=== PATIENT | female | born 1985 | race Caucasian/White ===

== ENCOUNTER → 2016-05-21 | Outpatient (CLI) | payer OTHER ==
--- NOTE | 2016-05-21 08:24 | MM ---
Reason for exam: clinical finding. Baseline mammogram. History: Cyst aspiration, 2012. Indicated problem(s): lump or thickening in the right breast. Physical Findings: Nurse Summary: 2cm nodule in the right breast at 9 o'clock (nurse heber). MG 3D Diag Mammo W/Cad SONG Bilateral CC and MLO view(s) were taken. There are scattered fibroglandular densities. Finding #1: Architectural distortion in the right breast consistent with scar. Finding #2: There are few typically benign round calcifications in the right breast. There is no discrete abnormality. These results were verbally communicated with the patient and result sheet given to the patient on 05/21/16. ASSESSMENT: Incomplete: need additional imaging evaluation, BI-RAD 0 RECOMMENDATION: Ultrasound of the right breast. (palpable by nurse)
--- NOTE | 2016-05-21 08:26 | USB ---
Reason for exam: clinical finding. History: Cyst aspiration, 2013. Indicated problem(s): lump or thickening in the right breast. US Breast RT Right breast ultrasound including all four quadrants, the retroareolar region and axilla demonstrates a 1.6 x 1.0 x 1.4cm oval, mixed lesion at 10 o'clock, 14cm from nipple and a 1.5 x 1.0 x 1.9cm oval, mixed lesion at 12 o'clock, 13cm from nipple at end of scar, shadowing. These results were verbally communicated with the patient and result sheet given to the patient on 05/21/16. ASSESSMENT: Suspicious, BI-RAD 4 RECOMMENDATION: Ultrasound core biopsy of the right breast. (1-2 sites) Called Dr. Vivas with mammographic findings and has scheduled an appointment for the patient for 05/27/16 at 4:[address] Goel. PRELIMINARY REPORT CALLED AND FAXED TO DR. GOEL ON 05/21/16 AT 300/TP.
== END | disposition home or self-care (01) ==
LOC: RADMAMWWP 06:50
PROVIDERS: ATTEND Family Medicine
DX: N63 Unspecified lump in breast (principal); R92.8 Other abnormal and inconclusive findings on diagnostic imaging of breast
CPT/HCPCS: 76641; G0204; G0279

== ENCOUNTER → 2016-06-07 | Day surgery (SDC) | payer OTHER ==
[~2016-06-07] MED LIST: ALPRAZolam 0.25 MG TAB ONE; BACITRACIN OINT 1 EACH PACKET TOPICAL ONE; LIDOCAINE 1% INJ 10MG/ML (20 ML MDV) ONE; SODIUM BICARB 4% 5 ML VIAL (0.48 MEQ/ML) ONE
--- NOTE | 2016-06-07 15:23 | USB ---
EXAMINATION TYPE: US biopsy breast VAD RT DATE OF EXAM: 06/07/2016 2:57 PM CLINICAL HISTORY: N63 BREAST LUMP,MASS. TECHNIQUE: Ultrasound guided core biopsy of left breast at the 12 and 10:00 positions. COMPARISON: 05/21/2016 FINDINGS: The procedure of ultrasound guided core biopsy was explained to the patient. Benefits, alternatives, and risks were discussed. An informed consent was then obtained. 12:00 position was reimaged and the abnormality seen previously demonstrates significant interval improvement with smaller cystic area remaining. Biopsy of the 12:00 area was not performed and six-month follow-up is advised. The 10:00 location appears similar to the prior study and therefore was targeted for biopsy. The patient was placed in supine positioning for imaging and for the procedure. The overlying skin was prepped and draped in usual sterile fashion. Lidocaine buffered with bicarbonate was used as anesthetic into the skin and subcutaneous tissue up to area of concern in the right 10:00 breast. A kathy was made with surgical scalpel. Under ultrasound guidance, a 12-gauge vacuum assisted biopsy gun device was used to obtain 5 core samples. Following this, a biopsy clip was left in lesion. Clip marker was deployed and the mammogram was not obtained given lack of mammographic finding. The patient tolerated the procedure well without any immediate complication. The patient was kept in the radiology department for short stay after the procedure and then discharged home in stable condition. IMPRESSION: Successful, uncomplicated ultrasound guided core biopsy of area of concern in the right 10:00 breast, full pathology results to follow. Six-month follow-up ultrasound right breast. Pathology Results: Benign BREAST, RIGHT, 10:00, ULTRASOUND GUIDED CORE BIOPSY: FAT NECROSIS, FIBROSIS WITH HYALINIZATION, FIBROPLASIA, VASCULAR PROLIFERATION AND LYMPHOHISTIOCYTIC INFLAMMATION. BREAST ELEMENTS ARE NOT IDENTIFIED IN THE BIOPSY MATERIAL. Recommendation Follow up ultrasound of the right breast in 6 months. ELICEOD
== END ==
LOC: RADUSWWP 13:12
PROVIDERS: ATTEND Surgery
DX: N63 Unspecified lump in breast (principal); R92.8 Other abnormal and inconclusive findings on diagnostic imaging of breast
CPT/HCPCS: 19083; A4648; J2001; 88305

== ENCOUNTER 2016-09-23 02:08 | Emergency (ER) | payer OTHER ==
[2016-09-23 02:19] VITALS: BP 161/97; RESP 18; TEMP 97.6
[2016-09-23] MEDS: hydrOXYzine PAMOATE 25 MG CAP PO STA (02:34)
[2016-09-23] MEDS: diphenhydrAMINE 50 MG CAP PO STA (02:34)
[2016-09-23] MEDS: FAMOTIDINE 20 MG TAB PO STA (02:34)
[2016-09-23] MEDS: methylPREDNISolone SOD SUCCI 125 MG/2 ML VIAL IM ONE (02:35)
[2016-09-23] MEDS: ALBUTEROL NEBULIZED 2.5 MG/3 ML INHALATION STA (02:40)
[2016-09-23 02:44] VITALS: PULSE 96
--- NOTE | 2016-09-23 03:03 | ED ---
Skin/Abscess/FB HPI - General Chief complaint: Skin/Abscess/Foreign Body Stated complaint: hives Time Seen by Provider: 09/23/16 02:19 Source: patient, RN notes reviewed, old records reviewed Mode of arrival: ambulatory Limitations: no limitations - History of Present Illness Initial comments: This is a pleasant 31-year-old female presents emergency Department chief complaint of hives over her back, chest and abdomen and arms the past 2 hours. Patient reports that she noticed her hives earlier in the day and took some Benadryl may one week. Patient reports that she was sleeping when she noticed that the hives and then return. Patient denies any exposures that could've caused this. She denies any abnormal foods or changes in detergents or other new exposures. Patient states that she is not short of breath and does not feel her mouth or lip swelling. Patient is a smoker. She denies any recent fever or chills, chest pain, shortness of breath, nausea, vomiting, diarrhea, dysuria or other physical complaints. - Related Data Home Medications Medication Instructions Recorded Confirmed Cyclobenzaprine [Flexeril] 10 mg PO Q8H PRN 12/23/15 01/26/16 HYDROcodone/APAP 10-325MG [[place] 1 tab PO TID 12/23/15 01/26/16 10-325] Metoprolol Tartrate [Lopressor] 25 mg PO BID 12/23/15 01/26/16 Pravastatin Sodium [Pravachol] 20 mg PO DAILY 12/23/15 01/26/16 Venlafaxine HCl [Effexor] 75 mg PO BID 12/23/15 01/26/16 Previous Rx's Medication Instructions Recorded Albuterol Inhaler [Ventolin Hfa 1 - 2 puff INHALATION Q6HR PRN #1 09/23/16 Inhaler] inhaler Famotidine [Pepcid] 20 mg PO BID #10 tablet 09/23/16 diphenhydrAMINE [Benadryl] 25 mg PO QID PRN #20 capsule 09/23/16 predniSONE 20 mg PO BID #6 tab 09/23/16 Allergies Allergy/AdvReac Type Severity Reaction Status Date / Time venom-honey bee Allergy Unknown Verified 09/23/16 02:19 [bee venom (honey bee)] tramadol AdvReac Unknown Verified 06/22/17 02:19 Review of Systems ROS Statement: Those systems with pertinent positive or pertinent negative responses have been documented in the HPI. ROS Other: All systems not noted in ROS Statement are negative. Past Medical History Past Medical History: Hypertension Additional Past Medical History / Comment(s): low back pain, endometriosis History of Any Multi-Drug Resistant Organisms: None Reported Past Surgical History: Unable to Obtain Additional Past Surgical History / Comment(s): laparoscopy Past Psychological History: Depression Smoking Status: Current every day smoker Past Alcohol Use History: None Reported Past Drug Use History: Marijuana General Exam - General Exam Comments Initial Comments: Pleasant 31-year-old female. No distress. Limitations: no limitations General appearance: alert, in no apparent distress Head exam: Present: atraumatic, normocephalic, normal inspection Eye exam: Present: normal appearance, PERRL, EOMI. Absent: scleral icterus, conjunctival injection, periorbital swelling ENT exam: Present: normal exam, mucous membranes moist Neck exam: Present: normal inspection. Absent: tenderness, meningismus, lymphadenopathy Respiratory exam: Present: normal lung sounds bilaterally, wheezes, other (Mild wheeze however patient is a smoker.). Absent: respiratory distress, rales, rhonchi, stridor Cardiovascular Exam: Present: regular rate, normal rhythm, normal heart sounds. Absent: systolic murmur, diastolic murmur, rubs, gallop, clicks GI/Abdominal exam: Present: soft, normal bowel sounds. Absent: distended, tenderness, guarding, rebound, rigid Extremities exam: Present: normal inspection, full ROM, normal capillary refill. Absent: tenderness, pedal edema, joint swelling, calf tenderness Back exam: Present: normal inspection Neurological exam: Present: alert, oriented X3, CN II-XII intact Psychiatric exam: Present: normal affect, normal mood Skin exam: Present: warm, dry, intact, urticaria. Absent: normal color ( Patient urticaria over back, chest, abdomen and upper arms and lower buttock.), rash Course Vital Signs 09/23/16 09/23/16 09/23/16 02:15 02:40 02:51 Temperature 97.6 F Pulse Rate 104 H 96 96 Respiratory 18 Rate Blood Pressure 161/97 O2 Sat by Pulse 98 Oximetry Medical Decision Making - Medical Decision Making This is a pleasant 31-year-old female presents emergency Department chief complaint of hives over her back, chest and abdomen and arms the past 2 hours. Patient reports that she noticed her hives earlier in the day and took some Benadryl may one week. Patient reports that she was sleeping when she noticed that the hives and then return. Patient denies any exposures that could've caused this. She denies any abnormal foods or changes in detergents or other new exposures. Patient states that she is not short of breath and does not feel her mouth or lip swelling. Patient does have significant urticaria over her back, chest and abdomen. She also had a mild wheeze but she does state that she is a smoker. Patient given albuterol breathing treatment, I am Solu- Medrol and Benadryl and Pepcid. Patient was reevaluated and her hives are clearing. She does feel much better. Patient will be discharged on a steroid dose for the next few days as well as Pepcid and Benadryl. Patient agrees to treatment plan will comply. Return parameters were discussed. Disposition Clinical Impression: Urticaria Disposition: HOME SELF-CARE Condition: Good Instructions: Urticaria (ED) Additional Instructions: Take prescriptions as directed. Follow up with PCP, return to the emergency department if any alarming signs or symptoms that occur. Prescriptions: Albuterol Inhaler [Ventolin Hfa Inhaler] 1 - 2 puff INHALATION Q6HR PRN #1 inhaler PRN Reason: Shortness Of Breath diphenhydrAMINE [Benadryl] 25 mg PO QID PRN #20 capsule PRN Reason: Itching Famotidine [Pepcid] 20 mg PO BID #10 tablet predniSONE 20 mg PO BID #6 tab Referrals: Davon Vivas DO [Primary Care Provider] - 1-2 days Time of Disposition: 03:00
== END 2016-09-23 03:11 | disposition home or self-care (01) ==
LOC: EC 02:08
DX: L50.9 Urticaria, unspecified (principal); I10 Essential (primary) hypertension; F32.9 Major depressive disorder, single episode, unspecified; F17.200 Nicotine dependence, unspecified, uncomplicated; Z79.891 Long term (current) use of opiate analgesic; Z79.899 Other long term (current) drug therapy; Z88.5 Allergy status to narcotic agent; Z91.030 Bee allergy status; Z87.39 Personal history of other diseases of the musculoskeletal system and connective tissue
CPT/HCPCS: 94640; 99283; 96372; J2930

== ENCOUNTER 2017-04-15 19:27 | Emergency (ER) | payer BC, OTHER ==
[2017-04-15 19:58] VITALS: BP 168/103; PULSE 98; RESP 18; TEMP 99.8
--- NOTE | 2017-04-15 20:45 | XR ---
Left foot and ankle HISTORY: Trauma and pain 3 views of the left foot and 3 views of the left ankle are submitted. Bone mineralization, joint spaces and alignment are maintained. Small ossific density distal to the m edial malleolus as well as distal to the fibula are well-corticated and felt likely to be acute chron ic. There is soft tissue swelling at the ankle. IMPRESSION: No acute fracture or dislocation is evident.
--- NOTE | 2017-04-15 21:11 | ED ---
Lower Extremity Injury HPI - General Chief Complaint: Extremity Injury, Lower Stated Complaint: Lt Ankle Injury Time Seen by Provider: 04/15/17 20:16 Source: patient, RN notes reviewed, old records reviewed Mode of arrival: wheelchair Limitations: no limitations - History of Present Illness Initial Comments: 32-year-old female presents to the emergency department today chief complaint of left ankle pain and swelling. She reports that she slipped and within the ice and rolled her ankle. She denies any knee pain. She does report some lower leg bruising and swelling. She reports that she has fractured and sprained both of her ankles multiple times. She denies any numbness or tingling down the toes. She reports she has full range of motion of her feet. Patient reports she has not seen an orthopedic in many years. Denies any other injuries related to the fall.Patient denies any recent fever, chills, shortness of breath, chest pain, back pain, abdominal pain, nausea vomiting, numbness or tingling, dysuria or hematuria, constipation or diarrhea, headaches or visual changes, or any other current symptoms - Related Data Home Medications Medication Instructions Recorded Confirmed Cyclobenzaprine [Flexeril] 10 mg PO TID PRN 04/15/17 04/15/17 Ibuprofen [Motrin] 800 mg PO Q8H PRN 04/15/17 04/15/17 Previous Rx's Medication Instructions Recorded Ibuprofen [Motrin] 600 mg PO Q6HR PRN #20 tab 04/15/17 Allergies Allergy/AdvReac Type Severity Reaction Status Date / Time venom-honey bee Allergy Unknown Verified 04/15/17 20:02 [bee venom (honey bee)] tramadol AdvReac Unknown Verified 04/15/17 20:02 Review of Systems ROS Statement: Those systems with pertinent positive or pertinent negative responses have been documented in the HPI. ROS Other: All systems not noted in ROS Statement are negative. Past Medical History Past Medical History: Hypertension Additional Past Medical History / Comment(s): low back pain, endometriosis History of Any Multi-Drug Resistant Organisms: None Reported Past Surgical History: Unable to Obtain Additional Past Surgical History / Comment(s): laparoscopy Past Psychological History: Depression Smoking Status: Current every day smoker Past Alcohol Use History: Occasional Past Drug Use History: Marijuana General Exam - General Exam Comments Initial Comments: this is a 32-year-old female. No acute distress. Limitations: no limitations General appearance: alert, in no apparent distress Head exam: Present: atraumatic, normocephalic, normal inspection Eye exam: Present: normal appearance, PERRL, EOMI. Absent: scleral icterus, conjunctival injection, periorbital swelling ENT exam: Present: normal exam, mucous membranes moist Neck exam: Present: normal inspection. Absent: tenderness, meningismus, lymphadenopathy Respiratory exam: Present: normal lung sounds bilaterally. Absent: respiratory distress, wheezes, rales, rhonchi, stridor Cardiovascular Exam: Present: regular rate, normal rhythm, normal heart sounds. Absent: systolic murmur, diastolic murmur, rubs, gallop, clicks Left Knee exam: Present: normal inspection, full ROM Lower Leg exam: Present: normal inspection, ecchymosis (a few areas of scattered ecchymosis over the lower leg.) Ankle exam: Present: tenderness (tenderness over the lateral malleolus.), swelling. Absent: normal inspection, full ROM (patient reports limited inversion and eversion of the ankle due to pain.) Foot/Toe exam: Present: normal inspection Neurovascular tendon exam: Present: no vascular compromise Gait: observed and limited by pain. negative: observed and normal, not tested/ not observed Back exam: Present: normal inspection Neurological exam: Present: alert, oriented X3, CN II-XII intact Psychiatric exam: Present: normal affect, normal mood Course Vital Signs 04/15/17 19:52 Temperature 99.8 F H Pulse Rate 98 Respiratory 18 Rate Blood Pressure 168/103 O2 Sat by Pulse 98 Oximetry Procedures - Orthopedic Splinting/Casting Injury #1 Side: left Lower Extremity Injury Location: ankle Lower Extremity Immobilizer: AirCast, Hal wrap Other Orthopedic Equipment: crutches Medical Decision Making - Medical Decision Making this patient is a 32-year-old female presents emergency department today chief complaint of left ankle pain and swelling after she rolled it slipped on ice. Denies any other injuries related to the fall. She has some tenderness over the lateral malleolus. Limited range of motion due to pain significant swelling noted. Patient was given ice pack, x-rays obtained. X-rays are negative for any acute fracture dislocation. Patient is placed in an Hal wrap, and ankle stirrup Aircast. Laboratory medicine. Discussed rest, ice, and elevate the uncle. Patient agrees to treatment plan will comply. Return parameters were discussed. - Radiology Data Radiology results: report reviewed x-rays negative for any acute process. Disposition Clinical Impression: Left ankle sprain Disposition: HOME SELF-CARE Condition: Good Instructions: Ankle Sprain (ED) Additional Instructions: is advised to rest, ice, elevate the foot. Endocrine with crutches. Follow-up with orthopedic if symptoms continue to persist or worsen within the next week. Return to emergency department if any alarming signs or symptoms occur. Prescriptions: Ibuprofen [Motrin] 600 mg PO Q6HR PRN #20 tab PRN Reason: Pain Referrals: Davon Vivas DO [Primary Care Provider] - 1-2 days Time of Disposition: 21:10
== END 2017-04-15 21:20 | disposition home or self-care (01) ==
LOC: EC 19:27
DX: S93.402A Sprain of unspecified ligament of left ankle, initial encounter (principal); F17.200 Nicotine dependence, unspecified, uncomplicated; Z91.030 Bee allergy status; Z88.6 Allergy status to analgesic agent; X50.1XXA Overexertion from prolonged static or awkward postures, initial encounter; Y92.89 Other specified places as the place of occurrence of the external cause
CPT/HCPCS: 99284

== ENCOUNTER 2019-02-25 05:47 | Emergency (ER) | payer BC ==
[2019-02-25 05:53] VITALS: TEMP 98.1
[2019-02-25] MEDS ORDERED: SODIUM CHLORIDE 0.9% 1,000 ML IV ONE (06:07)
[2019-02-25] MEDS ORDERED: HYDROmorphone 0.5 MG/0.5 ML SYRINGE IVP STA (06:07)
[2019-02-25] MEDS ORDERED: ONDANSETRON 4 MG/2 ML VIAL IVP STA (06:08)
[2019-02-25] MEDS ORDERED: SODIUM CHLORIDE 0.9% 1,000 ML IV SCH (06:15)
[2019-02-25 06:16] LABS: Basophils # (A) 0.1 k/uL (0-0.2); Basophils % (A) 1 %; Eosinophils # (A) 0.2 k/uL (0-0.7); Eosinophils % (A) 2 %; HGB 15.4 gm/dL (11.4-16.0); Lymphocytes # (A) 2.4 k/uL (1.0-4.8); Lymphocytes % (A) 20 %; MCH 29.7 pg (25.0-35.0); MCHC 32.7 g/dL (31.0-37.0); Mean Platelet Volume 7.3; Monocytes # (A) 0.5 k/uL (0-1.0); Monocytes % (A) 4 %; Neutrophils # (A) 8.8 k/uL (1.3-7.7); Neutrophils % (A) 72 %; Platelet Count 331 k/uL (150-450); RBC 5.17 m/uL (3.80-5.40); RDW 13.4 % (11.5-15.5); WBC 12.2 k/uL (3.8-10.6)
[2019-02-25 06:25] LABS: ALT 39 U/L (9-52); AST 23 U/L (14-36); African American GFR (CKD) >90 (>60 ml/min/1.73 sqM); Albumin 4.7 g/dL (3.5-5.0); Alkaline Phosphatase 82 U/L (38-126); Amylase 47 U/L (30-110); Anion Gap 14 mmol/L; Blood Urea Nitrogen 9 mg/dL (7-17); Calcium 10.3 mg/dL (8.4-10.2); Carbon Dioxide 21 mmol/L (22-30); Chloride 106 mmol/L (98-107); Glucose 125 mg/dL (74-99); Non-African American GFR(CKD) 84 (>60 ml/min/1.73 sqM); Potassium 3.8 mmol/L (3.5-5.1); Sodium 141 mmol/L (137-145); Total Bilirubin 0.6 mg/dL (0.2-1.3)
--- NOTE | 2019-02-25 07:11 | ED ---
Abdominal Pain HPI - General Chief Complaint: Abdominal Pain Stated Complaint: Abd Pain Time Seen by Provider: 02/25/19 06:07 Source: patient Mode of arrival: ambulatory Limitations: no limitations - History of Present Illness Initial Comments: 33-year-old female no snuff and past medical history presenting today for chief complaint of right upper quadrant pain that radiates to the back. Patient states that she has had this pain on and off for the past 6 months. She denies any specific alleviating or aggravating factors. She does know possible pattern with greasy foods. Patient states it occurs usually in the night. Patient states he began around 2 ominous persistent. She states is sharp in nature. She denies any chest pain shortness of breath and leg swelling. Patient denies any lower abdominal pain denies , vaginal discharge or pelvic pain. Patient denies diarrhea, admits to vomiting on occasion and nausea with symptoms. Remaining ROS (-). Upon arrival patient appears uncomfortable. - Related Data Home Medications Medication Instructions Recorded Confirmed Cyclobenzaprine [Flexeril] 10 mg PO TID PRN 04/15/17 04/15/17 Ibuprofen [Motrin] 800 mg PO Q8H PRN 04/15/17 04/15/17 Previous Rx's Medication Instructions Recorded Ibuprofen [Motrin] 600 mg PO Q6HR PRN #20 tab 04/15/17 Allergies Allergy/AdvReac Type Severity Reaction Status Date / Time venom-honey bee Allergy Unknown Verified 02/25/19 05:53 [bee venom (honey bee)] tramadol AdvReac Unknown Verified 02/25/19 05:53 Review of Systems ROS Statement: Those systems with pertinent positive or pertinent negative responses have been documented in the HPI. ROS Other: All systems not noted in ROS Statement are negative. Past Medical History Past Medical History: Hypertension Additional Past Medical History / Comment(s): low back pain, endometriosis History of Any Multi-Drug Resistant Organisms: None Reported Past Surgical History: Unable to Obtain Additional Past Surgical History / Comment(s): laparoscopy Past Psychological History: Depression Smoking Status: Current every day smoker Past Alcohol Use History: Occasional Past Drug Use History: Marijuana General Exam - General Exam Comments Initial Comments: General: The patient is awake and alert, in no distress, and does not appear acutely ill. Eye: +3 mm pupils are equal, round and reactive to light, extra-ocular movements are intact. No nystagmus. There is normal conjunctiva bilaterally. No signs of icterus. Cardiovascular: There is a regular rate and rhythm. No murmur, rub or gallop is appreciated. Respiratory: Lungs are clear to auscultation, respirations are non-labored, breath sounds are equal. No wheezes, stridor, rales, or rhonchi. Gastrointestinal: Soft, non-distended, abdomen exquisitely tender to palpation of the right upper quadrant with positive Brown sign the remaining abdomen is nontender and without masses or organomegaly noted. There is no rebound or guarding present. No CVA tenderness. Bowel sounds are unremarkable. Musculoskeletal: Normal ROM, no tenderness. Strength 5/5. Sensation intact. Rdaial pulses equal bilaterally 2+. Neurological: A&O x 3. CN II-XII intact grossly, There are no obvious motor or sensory deficits. Coordination appears grossly intact. Speech is normal. Skin: Skin is warm and dry and no rashes or lesions are noted. Psychiatric: Cooperative, appropriate mood & affect, normal judgment. Limitations: no limitations Course Vital Signs 02/25/19 02/25/19 05:51 07:19 Temperature 98.1 F Pulse Rate 116 H 66 Respiratory 22 18 Rate Blood Pressure 159/90 142/82 O2 Sat by Pulse 98 98 Oximetry Medical Decision Making - Medical Decision Making 43-year-old female presented for abdominal pain she states she ate a fatty meal the night prior. Patient states this happens when she goes out for dinner. Right upper quadrant tenderness. No rebound or guarding. Pain controlled with 1 dose of Dilaudid no additional pain patient's had these episodes the pain resolves on and off for 6 months. Ultrasound revealed equivocal findings for cholecystitis. Patient is mild leukocytosis no transaminitis. General surgery was consulted. Recommending discharge with outpatient follow-up next week. Return parameters were discussed with patient including fever or worsening or persistent abdominal pain patient verbalized understanding and was discharged appearing well. Discussed avoidance of fatty foods - Lab Data Result diagrams: 02/25/19 06:06 02/25/19 06:06 Lab Results 02/25/19 02/25/19 02/25/19 Range/Units 06:06 06:06 07:27 WBC 12.2 H (3.8-10.6) k/uL RBC 5.17 (3.80-5.40) m/uL Hgb 15.4 (11.4-16.0) gm/dL Hct 47.0 H (34.0-46.0) % MCV 91.0 (80.0-100.0) fL MCH 29.7 (25.0-35.0) pg MCHC 32.7 (31.0-37.0) g/dL RDW 13.4 (11.5-15.5) % Plt Count 331 (150-450) k/uL Neutrophils % 72 % Lymphocytes % 20 % Monocytes % 4 % Eosinophils % 2 % Basophils % 1 % Neutrophils # 8.8 H (1.3-7.7) k/uL Lymphocytes # 2.4 (1.0-4.8) k/uL Monocytes # 0.5 (0-1.0) k/uL Eosinophils # 0.2 (0-0.7) k/uL Basophils # 0.1 (0-0.2) k/uL Sodium 141 (137-145) mmol/L Potassium 3.8 (3.5-5.1) mmol/L Chloride 106 (98-107) mmol/L Carbon Dioxide 21 L (22-30) mmol/L Anion Gap 14 mmol/L BUN 9 (7-17) mg/dL Creatinine 0.90 (0.52-1.04) mg/dL Est GFR (CKD-EPI)AfAm >90 (>60 ml/min/1.73 sqM) Est GFR (CKD-EPI)NonAf 84 (>60 ml/min/1.73 sqM) Glucose 125 H (74-99) mg/dL Calcium 10.3 H (8.4-10.2) mg/dL Total Bilirubin 0.6 (0.2-1.3) mg/dL AST 23 (14-36) U/L ALT 39 (9-52) U/L Alkaline Phosphatase 82 (38-126) U/L Total Protein 8.0 (6.3-8.2) g/dL Albumin 4.7 (3.5-5.0) g/dL Amylase 47 (30-110) U/L Lipase 87 (23-300) U/L Urine Color Urine Appearance (Clear) Urine pH (5.0-8.0) Ur Specific [place] (1.001-1.035) Urine Protein (Negative) Urine Glucose (UA) (Negative) Urine Ketones (Negative) Urine Blood (Negative) Urine Nitrite (Negative) Urine Bilirubin (Negative) Urine Urobilinogen (<2.0) mg/dL Ur Leukocyte Esterase (Negative) Urine RBC (0-5) /hpf Urine WBC (0-5) /hpf Ur Squamous Epith Cells (0-4) /hpf Urine Mucus (None) /hpf Urine HCG, Qual Not Detected (Not Detectd) 02/25/19 Range/Units 07:27 WBC (3.8-10.6) k/uL RBC (3.80-5.40) m/uL Hgb (11.4-16.0) gm/dL Hct (34.0-46.0) % MCV (80.0-100.0) fL MCH (25.0-35.0) pg MCHC (31.0-37.0) g/dL RDW (11.5-15.5) % Plt Count (150-450) k/uL Neutrophils % % Lymphocytes % % Monocytes % % Eosinophils % % Basophils % % Neutrophils # (1.3-7.7) k/uL Lymphocytes # (1.0-4.8) k/uL Monocytes # (0-1.0) k/uL Eosinophils # (0-0.7) k/uL Basophils # (0-0.2) k/uL Sodium (137-145) mmol/L Potassium (3.5-5.1) mmol/L Chloride (98-107) mmol/L Carbon Dioxide (22-30) mmol/L Anion Gap mmol/L BUN (7-17) mg/dL Creatinine (0.52-1.04) mg/dL Est GFR (CKD-EPI)AfAm (>60 ml/min/1.73 sqM) Est GFR (CKD-EPI)NonAf (>60 ml/min/1.73 sqM) Glucose (74-99) mg/dL Calcium (8.4-10.2) mg/dL Total Bilirubin (0.2-1.3) mg/dL AST (14-36) U/L ALT (9-52) U/L Alkaline Phosphatase (38-126) U/L Total Protein (6.3-8.2) g/dL Albumin (3.5-5.0) g/dL Amylase (30-110) U/L Lipase (23-300) U/L Urine Color Yellow Urine Appearance Clear (Clear) Urine pH 8.0 (5.0-8.0) Ur Specific [place] 1.018 (1.001-1.035) Urine Protein Trace H (Negative) Urine Glucose (UA) Negative (Negative) Urine Ketones Negative (Negative) Urine Blood Trace H (Negative) Urine Nitrite Negative (Negative) Urine Bilirubin Negative (Negative) Urine Urobilinogen <2.0 (<2.0) mg/dL Ur Leukocyte Esterase Negative (Negative) Urine RBC 3 (0-5) /hpf Urine WBC 2 (0-5) /hpf Ur Squamous Epith Cells 7 H (0-4) /hpf Urine Mucus Rare H (None) /hpf Urine HCG, Qual (Not Detectd) Disposition Clinical Impression: Right upper quadrant abdominal pain, Gallstones Disposition: HOME SELF-CARE Condition: Good Additional Instructions: Please use medication as discussed. Please follow-up with general surgery this upcoming week with Dr. Holman. Please return to emergency room if the symptoms increase or worsen or for any other concerns, fever, increasing pain. Is patient prescribed a controlled substance at d/c from ED?: No Referrals: Davon Vivas DO [Primary Care Provider] - 1-2 days Morales Holman MD [Medical Doctor] - 1-2 days Time of Disposition: 08:08
[2019-02-25 07:20] VITALS: RESP 18
[2019-02-25 07:34] LABS: Appearance,Urine Clear (Clear); Bilirubin,Urine Negative (Negative); Blood,Urine Trace (Negative); Color,Urine Yellow; Glucose,Urine (UA) Negative (Negative); Ketones,Urine Negative (Negative); Leukocyte Esterase,Urine Negative (Negative); Mucus,Urine Rare /hpf; Nitrite,Urine Negative (Negative); Protein,Urine Trace (Negative); RBC,Urine 3 /hpf (0-5); Specific Gravity,Urine 1.018 (1.001-1.035); Squamous Epithelial Cell,Urine 7 /hpf (0-4); Urobilinogen,Urine <2.0 mg/dL (<2.0); WBC,Urine 2 /hpf (0-5)
--- NOTE | 2019-02-25 08:04 | US ---
EXAMINATION TYPE: US gallbladder DATE OF EXAM: 02/25/2019 COMPARISON: NONE CLINICAL HISTORY: 33-year-old female RUQ pain. RUQ pain, nausea TECHNIQUE: Multiple sonographic images of the right upper quadrant are obtained. FINDINGS: EXAM MEASUREMENTS: Liver Length: 14.9 cm Gallbladder Wall: 0.4 cm CBD: 0.5 cm Right Kidney: 10.6 x 5.7 x 4.9 cm INTERNAL AUDIT MANAGER NOTES: Technical limitations due to patient's body habitus and large amount of overlyi ng bowel content Pancreas: Obscured by bowel gas Liver: limited evaluation, visualized portions appear wnl Gallbladder: Shadowing calculus suggested at the gallbladder neck region. No pericholecystic fluid. G allbladder is distended to the upper limits of normal. Most of the gallbladder wall appears normal th ickness. The surgical services asst measures a slightly thickened portion. Evidence for sonographic Brown's sign: yes CBD: limited evaluation, visualized portion of normal caliber. Right Kidney: no evidence of hydronephrosis IMPRESSION: Shadowing calculus at the gallbladder neck. The surgical services asst measures a slightly thickened portion of the gallbladder wall but the majority of the gallbladder wall appears normal thickness. No surroundin g fluid though sonographic Brown sign is reported positive. Early acute cholecystitis difficult to e xclude at this time. Follow-up ultrasound or HIDA scan.
[2019-02-25 08:31] VITALS: BP 139/79; PULSE 70
== END 2019-02-25 08:30 | disposition home or self-care (01) ==
LOC: EC 05:47
DX: K80.20 Calculus of gallbladder without cholecystitis without obstruction (principal); Z32.02 Encounter for pregnancy test, result negative; F17.200 Nicotine dependence, unspecified, uncomplicated; Z88.5 Allergy status to narcotic agent; Z91.030 Bee allergy status
CPT/HCPCS: 36415; 80053; 82150; 83690; 85025; 81001; 81025; 76705; 99284; 96374; 96375; 96361 ×2; J2405; J1170

== ENCOUNTER 2019-03-01 18:12 | Emergency (ER) | payer BC ==
[2019-03-01] MEDS ORDERED: HYDROmorphone 0.5 MG/0.5 ML SYRINGE IVP STA (18:42)
[2019-03-01] MEDS ORDERED: SODIUM CHLORIDE 0.9% 1,000 ML IV STA (18:42)
[2019-03-01] MEDS ORDERED: ONDANSETRON 4 MG/2 ML VIAL IVP STA (18:42)
--- NOTE | 2019-03-01 18:50 | ED ---
Abdominal Pain HPI - General Chief Complaint: Abdominal Pain Stated Complaint: ABDOMINAL PAIN, GALLBLADDER PROBLEM Time Seen by Provider: 03/01/19 18:22 Source: patient Mode of arrival: wheelchair Limitations: no limitations - History of Present Illness Initial Comments: Patient is a 33-year-old female presenting to the emergency department with a chief complaint of abdominal pain. Patient reports she was diagnosed with gallstones 4 days ago and was advised to return to emergency department if she developed fevers, increased pain, nausea or vomiting. Patient reports increase in her symptoms even though she was not eating fatty foods. Patient reports she felt warm at home but never obtained a temperature. Patient reports she's been vomiting throughout the whole day and is constantly nauseated. Patient denies any diarrhea. Patient denies any chest pain, shortness of breath or headaches. Patient denies increased urgency or frequency dysuria. Patient denies hematuria, hematochezia or melena. - Related Data Home Medications Medication Instructions Recorded Confirmed Cyclobenzaprine [Flexeril] 10 mg PO TID PRN 04/15/17 04/15/17 Ibuprofen [Motrin] 800 mg PO Q8H PRN 04/15/17 04/15/17 Previous Rx's Medication Instructions Recorded Ibuprofen [Motrin] 600 mg PO Q6HR PRN #20 tab 04/15/17 Ondansetron Odt [Zofran Odt] 4 mg PO Q8HR PRN #20 tab 03/01/19 Allergies Allergy/AdvReac Type Severity Reaction Status Date / Time venom-honey bee Allergy Unknown Verified 03/01/19 18:19 [bee venom (honey bee)] tramadol AdvReac Unknown Verified 03/01/19 18:19 Review of Systems ROS Statement: Those systems with pertinent positive or pertinent negative responses have been documented in the HPI. ROS Other: All systems not noted in ROS Statement are negative. Past Medical History Past Medical History: Hypertension Additional Past Medical History / Comment(s): low back pain, endometriosis, gal lstones History of Any Multi-Drug Resistant Organisms: None Reported Past Surgical History: Unable to Obtain Additional Past Surgical History / Comment(s): laparoscopy Past Psychological History: Depression Smoking Status: Current every day smoker Past Alcohol Use History: Occasional Past Drug Use History: Marijuana General Exam Limitations: no limitations General appearance: alert, in no apparent distress, obese Head exam: Present: atraumatic, normocephalic, normal inspection Eye exam: Present: normal appearance, PERRL, EOMI Pupils: Present: normal accommodation ENT exam: Present: normal exam, mucous membranes moist Neck exam: Present: normal inspection, full ROM Respiratory exam: Present: normal lung sounds bilaterally Cardiovascular Exam: Present: regular rate, normal rhythm, normal heart sounds GI/Abdominal exam: Present: soft, tenderness (Right upper quadrant. Positive Brown sign ), normal bowel sounds. Absent: distended, guarding, rebound, rigid Extremities exam: Present: normal inspection, full ROM Back exam: Present: normal inspection, full ROM Neurological exam: Present: alert, oriented X3 Psychiatric exam: Present: normal affect, normal mood Skin exam: Present: warm, dry, intact, normal color Course Vital Signs 03/01/19 03/01/19 18:19 20:37 Temperature 98.8 F 97.7 F Pulse Rate 114 H 65 Respiratory 24 14 Rate Blood Pressure 135/104 144/96 O2 Sat by Pulse 98 99 Oximetry Medical Decision Making - Medical Decision Making Patient is a 33-year-old female presenting to emergency Department with chief complaint of abdominal pain. 4 days ago patient was diagnosed with cholelithias is on ultrasound. Patient is returning to the ED for continuous nausea vomiting and abdominal pain. Patient said no fevers. On physical exam patient is a positive Brown sign. Patient was given antiemetics, fluids and analgesia. On reevaluation patient reports her symptoms have completely resolved. I have low suspicion for cholecystitis at this time. CBC showed no leukocytosis. CMP and UA are unremarkable. Patient has an appointment scheduled to see a general surgeon in 10 days. Strict return parameters were thoroughly discussed with patient was understanding and agreeable. Case discussed with physician. - Lab Data Result diagrams: 03/01/19 18:54 03/01/19 18:54 Lab Results 03/01/19 03/01/19 Range/Units 18:54 18:54 WBC 8.7 (3.8-10.6) k/uL RBC 4.32 (3.80-5.40) m/uL Hgb 13.4 (11.4-16.0) gm/dL Hct 38.6 (34.0-46.0) % MCV 89.3 (80.0-100.0) fL MCH 30.9 (25.0-35.0) pg MCHC 34.6 (31.0-37.0) g/dL RDW 13.3 (11.5-15.5) % Plt Count 270 (150-450) k/uL Neutrophils % 64 % Lymphocytes % 30 % Monocytes % 4 % Eosinophils % 2 % Basophils % 0 % Neutrophils # 5.5 (1.3-7.7) k/uL Lymphocytes # 2.6 (1.0-4.8) k/uL Monocytes # 0.3 (0-1.0) k/uL Eosinophils # 0.1 (0-0.7) k/uL Basophils # 0.0 (0-0.2) k/uL Sodium 140 (137-145) mmol/L Potassium 3.7 (3.5-5.1) mmol/L Chloride 109 H (98-107) mmol/L Carbon Dioxide 23 (22-30) mmol/L Anion Gap 8 mmol/L BUN 10 (7-17) mg/dL Creatinine 1.07 H (0.52-1.04) mg/dL Est GFR (CKD-EPI)AfAm 79 (>60 ml/min/1.73 sqM) Est GFR (CKD-EPI)NonAf 68 (>60 ml/min/1.73 sqM) Glucose 109 H (74-99) mg/dL Calcium 9.8 (8.4-10.2) mg/dL Total Bilirubin 0.4 (0.2-1.3) mg/dL AST 20 (14-36) U/L ALT 33 (9-52) U/L Alkaline Phosphatase 63 (38-126) U/L Total Protein 6.9 (6.3-8.2) g/dL Albumin 4.1 (3.5-5.0) g/dL Amylase 38 (30-110) U/L Lipase 67 (23-300) U/L Disposition Clinical Impression: Right upper quadrant abdominal pain, Nausea & vomiting Disposition: HOME SELF-CARE Condition: Stable Instructions (If sedation given, give patient instructions): Abdominal Pain (ED) Additional Instructions: Please avoid eating fatty foods. Please see prescribe medication as directed. Please continue to follow up with your general surgeon appointment. Please return to emergency department if symptoms worsen. Prescriptions: Ondansetron Odt [Zofran Odt] 4 mg PO Q8HR PRN #20 tab PRN Reason: Nausea Is patient prescribed a controlled substance at d/c from ED?: No Referrals: Davon Vivas DO [Primary Care Provider] - 1-2 days Time of Disposition: 20:14
[2019-03-01 19:13] LABS: Basophils % (A) 0 %; Eosinophils # (A) 0.1 k/uL (0-0.7); Eosinophils % (A) 2 %; HCT 38.6 % (34.0-46.0); HGB 13.4 gm/dL (11.4-16.0); Lymphocytes # (A) 2.6 k/uL (1.0-4.8); Lymphocytes % (A) 30 %; MCH 30.9 pg (25.0-35.0); MCHC 34.6 g/dL (31.0-37.0); MCV 89.3 fL (80.0-100.0); Mean Platelet Volume 6.5; Monocytes # (A) 0.3 k/uL (0-1.0); Monocytes % (A) 4 %; Neutrophils # (A) 5.5 k/uL (1.3-7.7); Neutrophils % (A) 64 %; Platelet Count 270 k/uL (150-450); RBC 4.32 m/uL (3.80-5.40); RDW 13.3 % (11.5-15.5); WBC 8.7 k/uL (3.8-10.6)
[2019-03-01 19:15] LABS: Albumin 4.1 g/dL (3.5-5.0); Calcium 9.8 mg/dL (8.4-10.2); Potassium 3.7 mmol/L (3.5-5.1); Total Bilirubin 0.4 mg/dL (0.2-1.3); Total Protein 6.9 g/dL (6.3-8.2)
[2019-03-01] MEDS ORDERED: ONDANSETRON 4 MG ODT STARTER PACK 2 TAB BTL PO STA (20:12)
[2019-03-01] MEDS ORDERED: ACET/COD 300 MG/30 MG STARTER PACK 6 TAB BTL PO STA (20:12)
[2019-03-01 20:38] VITALS: BP 144/96; PULSE 65; RESP 14; TEMP 97.7
== END 2019-03-01 20:39 | disposition home or self-care (01) ==
LOC: EC 18:12
DX: R10.11 Right upper quadrant pain (principal); R11.2 Nausea with vomiting, unspecified; F17.200 Nicotine dependence, unspecified, uncomplicated; Z88.5 Allergy status to narcotic agent; Z91.030 Bee allergy status; Z87.19 Personal history of other diseases of the digestive system
CPT/HCPCS: 36415; 80053; 82150; 83690; 85025; 99284; 96374; 96375; 96361 ×2; J2405; S0119; J1170

== ENCOUNTER 2019-03-16 07:40 | Day surgery (SDC) | payer BC ==
[2019-03-15 08:56] VITALS: BMI 24.0
[~2019-03-16 07:40] MED LIST changes: -ALPRAZolam 0.25 MG TAB ONE; -BACITRACIN OINT 1 EACH PACKET TOPICAL ONE; +DEXAMETHASONE SOD PHOSPHATE 10 MG/ML 1 ML VIAL IV ONE; +HEPARIN SODIUM,PORCINE 5,000 UNIT/ML 1 ML VIAL SQ ONE; +KETOROLAC 30 MG/ML 1 ML VIAL IVP SCH; +LACTATED RINGERS 1,000 ML IV SCH; +LIDOCAINE 1% 20 ML VIAL (10MG/ML) FOR IV START INTRADERMA PRN; -LIDOCAINE 1% INJ 10MG/ML (20 ML MDV) ONE; +METOCLOPRAMIDE 5 MG/ML 2 ML VIAL IVP PRN; +SCOPOLAMINE 1.5MG/72HR PATCH TRANSDERM ONE; -SODIUM BICARB 4% 5 ML VIAL (0.48 MEQ/ML) ONE
[2019-03-16] MEDS: ONDANSETRON 4 MG/2 ML VIAL IVP ONE ×2 (08:07→10:01)
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
[2019-03-16] MEDS ORDERED: MIDAZOLAM 2 MG/2 ML VIAL ONE (08:45)
[2019-03-16] MEDS ORDERED: KETOROLAC 30 MG/ML 1 ML VIAL ONE (08:45)
[2019-03-16] MEDS ORDERED: NEOSTIGMINE 1 MG/ML 10 ML VIAL ONE (08:45)
[2019-03-16] MEDS ORDERED: PROPOFOL 10 MG/ML 20 ML VIAL IV ONE (08:45)
[2019-03-16] MEDS ORDERED: fentaNYL (PF) 50 MCG/ML 2 ML AMP ONE (08:45)
[2019-03-16] MEDS ORDERED: GLYCOPYRROLATE 0.2 MG/ML 2 ML VIAL ONE (08:45)
[2019-03-16] MEDS ORDERED: SUCCINYLCHOLINE CHLORIDE 100 MG/5 ML SYR IV ONE (08:45)
[2019-03-16] MEDS ORDERED: KETAMINE 10 MG/ML 20 ML VIAL ONE (08:45)
[2019-03-16] MEDS ORDERED: ROCURONIUM BROMIDE 10 MG/ML 10 ML VIAL IV ONE (08:45)
[2019-03-16] MEDS ORDERED: LIDOCAINE 1% INJ 10MG/ML (20 ML MDV) ONE (08:45)
[2019-03-16] MEDS ORDERED: BUPIVACAIN-EPI 0.25%-1:200,000 30 ML VIAL SQ ONE (09:12)
[2019-03-16 09:49] VITALS: TEMP 97.5
[2019-03-16] MEDS: HYDROmorphone 0.5 MG/0.5 ML SYRINGE IVP PRN ×4 (09:58→10:18)
[2019-03-16 10:37] VITALS: RESP 16
--- NOTE | 2019-03-16 11:29 | P.OP ---
Date of Procedure: 03/16/19 Preoperative Diagnosis: Cholecystitis Postoperative Diagnosis: Cholecystitis Procedure(s) Performed: Laparoscopic cholecystectomy Anesthesia: ARABELLA Surgeon: John Goel Pathology: other (Gallbladder) Condition: stable Disposition: PACU Description of Procedure: The patient was placed on the operating table. The patient received a general endotracheal tube anesthesia. The patients abdomen was prepped and draped in the usual sterile fashion. Through an infraumbilical stab incision, the fascia of the anterior abdominal wall was grasped with a pair of Kochers and then the Veress needle was placed in the peritoneal cavity. Position of the Veress needle was confirmed with positive drop test. The abdomen was then insufflated. After adequate insufflation, the 10 mm trocar was placed in the peritoneal cavity. Following this the laparoscope was placed in the peritoneal cavity. The patient was placed in the head-up, right side up position and then a 5 mm trocar was placed in the right lateral and right subcostal position under direct visualization. A 8 mm trocar was placed in the epigastric position. The gallbladder was grasped in the fundus and infundibulum. Traction on the gallbladder was placed in the lateral and the cephalad positions. The triangle of Calot was visualized.. The cystic duct was bluntly dissected until the union of the cystic duct and common bile duct was seen. A critical view of safety was achieved. The cystic duct was then divided and sealed with the Harmonic scissors. A PDS Endoloop was then placed throughout the cystic duct stump. The cystic artery divided and sealed with the Harmonic scissors. The gallbladder was then removed from the liver bed using Harmonic scissors. The gallbladder was then extracted through the epigastric port site. Operative field was checked for any bleeding spots and Harmonic scissors was used to coagulate the liver bed. The abdomen was irrigated. The trocars were removed. The skin was closed using interrupted 3-0 Vicryl suture. Dermabond dressing were applied. The patient tolerated the procedure well.
[2019-03-16 11:37] VITALS: BP 108/71; PULSE 69
== END 2019-03-16 12:01 | disposition home or self-care (01) ==
LOC: OR 07:40
PROVIDERS: ATTEND Surgery
DX: K80.10 Calculus of gallbladder with chronic cholecystitis without obstruction (principal); I10 Essential (primary) hypertension; F17.200 Nicotine dependence, unspecified, uncomplicated; Z86.69 Personal history of other diseases of the nervous system and sense organs; Z88.6 Allergy status to analgesic agent; Z91.030 Bee allergy status; Z87.42 Personal history of other diseases of the female genital tract; Z80.9 Family history of malignant neoplasm, unspecified
CPT/HCPCS: 81025; 88304; 47562; J2250; J1644; J1100; J2710; J2765; J0690; J2405; J2001; J3010; J1885; J0330; J2704; J1170

== ENCOUNTER → 2020-05-22 | Outpatient (CLI) | payer BC ==
--- NOTE | 2020-05-22 14:00 | XR ---
EXAMINATION TYPE: XR knee complete LT DATE OF EXAM: 05/22/2020 COMPARISON: None HISTORY: 35-year-old female pain, S89.92XA Injury of knee left TECHNIQUE: 3 views FINDINGS: There is a small knee joint effusion. Extensor mechanism appears intact. There is some mild anterior infrapatellar soft tissue swelling as well. No acute fracture, subluxation, dislocation. IMPRESSION: There is a small knee joint effusion and mild anterior soft tissue swelling. If concern for internal derangement or there is patellar or other instability, MRI can be performed. No acute osseous abnorma lity seen.
== END | disposition home or self-care (01) ==
LOC: RADXRMAIN 10:09
PROVIDERS: ATTEND Family Medicine
DX: S89.92XA Unspecified injury of left lower leg, initial encounter (principal)

== ENCOUNTER → 2020-05-30 | Outpatient (CLI) | payer BC ==
--- NOTE | 2020-05-30 15:03 | MR ---
EXAMINATION TYPE: MR knee LT wo con DATE OF EXAM: 05/30/2020 COMPARISON: None HISTORY: Left knee pain, swelling, and locking for 2 and half weeks. TECHNIQUE: Multiplanar, multisequence images of the knee is performed without IV contrast. FINDINGS: MEDIAL MENISCUS: Anterior and posterior horns are intact without tear. LATERAL MENISCUS: Anterior and posterior horns are intact without tear. CRUCIATE LIGAMENTS: The anterior and posterior cruciate ligaments are intact and unremarkable. COLLATERAL LIGAMENTS: The medial collateral ligament and lateral collateral ligament complex are inta ct and unremarkable. EXTENSOR MECHANISM: Visualized quadriceps and patellar tendons are intact. EFFUSION: No significant suprapatellar joint effusion. POPLITEAL CYST: Small joint effusion present. TRICOMPARTMENT SPACES: Mild narrowing medial tibiofemoral joint space. CARTILAGE: Intact BONE MARROW SIGNAL: No focal abnormal marrow signal is appreciated. OTHER: No additional significant abnormality is appreciated. IMPRESSION: No internal arrangement identified.
== END | disposition home or self-care (01) ==
LOC: RADMRIMAIN 13:46
PROVIDERS: ATTEND Nurse Practitioner Family
DX: M25.362 Other instability, left knee (principal)

== ENCOUNTER 2020-08-16 18:42 | Emergency (ER) | payer BC ==
[2020-08-16 18:56] VITALS: BP 165/94; TEMP 98.7
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
[2020-08-16] MEDS ORDERED: MORPHINE SULFATE 2 MG/ML SYRINGE IM STA (19:36)
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
[2020-08-16 20:01] VITALS: PULSE 74; RESP 18
== END 2020-08-16 20:01 | disposition home or self-care (01) ==
LOC: EC 18:42
DX: S63.296A Dislocation of distal interphalangeal joint of right little finger, initial encounter (principal); I10 Essential (primary) hypertension; F17.200 Nicotine dependence, unspecified, uncomplicated; F12.90 Cannabis use, unspecified, uncomplicated; Z79.1 Long term (current) use of non-steroidal anti-inflammatories (NSAID); W23.1XXA Caught, crushed, jammed, or pinched between stationary objects, initial encounter
CPT/HCPCS: 99283

== ENCOUNTER 2020-12-16 09:26 | Emergency (ER) | payer BC ==
[2020-12-16 09:29] VITALS: RESP 22; TEMP 98.3
[2020-12-16] MEDS ORDERED: MORPHINE SULFATE 4 MG/ML SYRINGE IM STA (09:53)
--- NOTE | 2020-12-16 10:56 | XR ---
Right foot and right ankle HISTORY: Pain 3 views of the right ankle, 3 views of the right foot Bone mineralization, joint spaces and alignment are maintained. At the level of the distal aspect of the fibula there is an ossific fragment which is curvilinear measuring 6 x 2 mm. No dislocation. Ther e is spurring at the intertarsal joints, tibiotalar joint. Soft tissue swelling noted at the right an kle. Enthesophyte present at the insertion of the Achilles tendon. IMPRESSION: Probable avulsion injury distal fibula, correlate. Osteoarthritis.
--- NOTE | 2020-12-16 10:57 | XR ---
EXAMINATION TYPE: XR tibia fibula RT DATE OF EXAM: 12/16/2020 COMPARISON: NONE HISTORY: 35-year-old female with pain TECHNIQUE: 2 views FINDINGS: No acute fracture of the proximal to mid tibia or fibula. There is a curvilinear density below the la teral malleolus with some overlying soft tissue swelling. IMPRESSION: Small curvilinear avulsion fracture from the inferior tip of the lateral malleolus. Associated soft t issue swelling. No acute fracture of the more proximal or mid tibia or fibula.
[2020-12-16] MEDS ORDERED: ACET/COD 300 MG/30 MG STARTER PACK 6 TAB BTL PO STA (11:19)
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
[2020-12-16 11:26] VITALS: BP 160/87; PULSE 100
== END 2020-12-16 11:26 | disposition home or self-care (01) ==
LOC: EC 09:26
DX: S82.201A Unspecified fracture of shaft of right tibia, initial encounter for closed fracture (principal); F17.200 Nicotine dependence, unspecified, uncomplicated; I10 Essential (primary) hypertension; Z91.030 Bee allergy status; Z88.5 Allergy status to narcotic agent; W18.30XA Fall on same level, unspecified, initial encounter; Y93.01 Activity, walking, marching and hiking
CPT/HCPCS: 99283; 96372; 29515; 73590; 73610; 73630; J2270

== ENCOUNTER → 2023-03-03 | Outpatient (CLI) | payer BC ==
--- NOTE | 2023-03-03 12:35 | MR ---
EXAMINATION TYPE: MR lumbar spine wo con DATE OF EXAM: 03/03/2023 COMPARISON: MRI 12/22/2015, x-ray 02/10/2000 HISTORY: Lower back pain, RLE radiculopathy, frequent falls. TECHNIQUE: T1 and T2 axial and sagittal images of the lumbar spine are submitted. FINDINGS: There is no abnormal signal seen within the visualized spinal cord or paraspinal soft tissu es. Mild thickening or nodularity left adrenal gland too small to characterize but most typical of ei ther benign hyperplasia or small benign adenoma At L1-2 there is no evidence of degenerative disc disease, disc herniation, canal stenosis, or forami nal encroachment. At L2-3 there is no evidence of degenerative disc disease, disc herniation, canal stenosis, or forami nal encroachment. At L3-4 there is no evidence of degenerative disc disease, disc herniation, canal stenosis, or forami nal encroachment. At L4-5 there is no evidence of degenerative disc disease, disc herniation, canal stenosis, or forami nal encroachment. Mild facet arthropathy is stable. At L5-S1 there is disc desiccation and degenerative disc disease with discogenic marrow changes. Broa d-based central disc protrusion subligamentous, with mild thecal sac compression. There is very mild extrusion of disc along the posterior margin of the lower L5 segment. This is stable. No canal stenos is. Mild bilateral foraminal encroachment. There is facet arthropathy. IMPRESSION: 1. At L5-S1 there is disc desiccation and degenerative disc disease with discogenic marrow changes. B road-based central disc protrusion\small herniation, subligamentous. Mild bilateral foraminal encroac hment. Findings stable.
== END | disposition home or self-care (01) ==
LOC: RADMRIMAIN 08:53
PROVIDERS: ATTEND Family Medicine
DX: M51.17 Intervertebral disc disorders with radiculopathy, lumbosacral region (principal); M51.27 Other intervertebral disc displacement, lumbosacral region; D75.89 Other specified diseases of blood and blood-forming organs; R29.6 Repeated falls
CPT/HCPCS: 72148

== ENCOUNTER → 2023-06-23 | Outpatient (CLI) | payer BC ==
[2023-06-23 16:06] LABS: ALT 30 U/L (8-44); AST 16 U/L (13-35); Albumin 4.3 g/dL (3.8-4.9); Albumin/Globulin Ratio 1.72 Ratio (1.60-3.17); Alkaline Phosphatase 87 U/L (41-126); BUN/Creat Ratio 10.38 Ratio (12.00-20.00); Blood Urea Nitrogen 8.3 mg/dL (9.0-27.0); Calcium 9.9 mg/dL (8.7-10.3); Carbon Dioxide 24.6 mmol/L (21.6-31.8); Chloride 105 mmol/L (96-109); Chol/HDL Ratio 4.77 Ratio; Globulin 2.5 g/dL (1.6-3.3); Glucose 105 mg/dL (70-110); LDL Cholesterol,Calculated 151.5 mg/dL (0.0-131.0); Potassium 4.3 mmol/L (3.5-5.5); Sodium 141 mmol/L (135-145); Total Bilirubin 0.4 mg/dL (0.3-1.2); Total Protein 6.8 g/dL (6.2-8.2)
[2023-06-23 16:32] LABS: Basophils # (A) 0.02 X 10*3/uL (0.00-0.10); Basophils % (A) 0.2 %; Eosinophils # (A) 0.06 X 10*3/uL (0.04-0.35); Eosinophils % (A) 0.5 %; HCT 43.5 % (37.2-46.3); HGB 13.9 g/dL (12.0-15.0); Mean Platelet Volume 10.8 FL (9.5-12.2); Monocytes # (A) 0.52 X 10*3/uL (0.20-1.00); Monocytes % (A) 4.5 %; NRBC Per 100 WBC 0 X 10*3/uL (0.00-0.01); Neutrophils # (A) 8.89 X 10*3/uL (1.80-7.70); Neutrophils % (A) 76.4 %; Platelet Count 256 X 10*3/uL (140-440); RBC 4.63 X 10*6/uL (4.10-5.20); RDW 13.5 % (11.5-14.5); WBC 11.64 X 10*3/uL (4.50-10.00)
== END | disposition home or self-care (01) ==
LOC: LABWHC1 07:58
PROVIDERS: ATTEND Nurse Practitioner Family
DX: Z00.00 Encounter for general adult medical examination without abnormal findings (principal); E78.2 Mixed hyperlipidemia
CPT/HCPCS: 36415; 80053; 80061; 85025

== ENCOUNTER → 2023-10-05 | Outpatient (CLI) | payer BC ==
[2023-10-05 15:44] LABS: ALT 35 U/L (8-44); AST 16 U/L (13-35); Albumin/Globulin Ratio 2.11 Ratio (1.60-3.17); Alkaline Phosphatase 63 U/L (41-126); BUN/Creat Ratio 10.33 Ratio (12.00-20.00); Blood Urea Nitrogen 9.3 mg/dL (9.0-27.0); Calcium 9.3 mg/dL (8.7-10.3); Carbon Dioxide 22.9 mmol/L (21.6-31.8); Chloride 107 mmol/L (96-109); Globulin 1.9 g/dL (1.6-3.3); Glucose 107 mg/dL (70-110); Potassium 4.4 mmol/L (3.5-5.5); Sodium 142 mmol/L (135-145); Total Bilirubin 0.2 mg/dL (0.3-1.2); Total Protein 5.9 g/dL (6.2-8.2)
== END | disposition home or self-care (01) ==
LOC: LABWHC1 09:21
PROVIDERS: ATTEND Nurse Practitioner Family
DX: R00.0 Tachycardia, unspecified (principal)
CPT/HCPCS: 36415; 80053; 84443; 84481